=== PATIENT | male | born 1985 | race Caucasian/White ===

== ENCOUNTER 2020-08-09 20:56 | Emergency (ER) | payer MEDICAID ==
[~2020-08-09 20:56] MED LIST: NO HOME MEDS
--- NOTE | 2020-08-09 22:22 | NUR ---
NOTIFIED ABOUT LWOB
== END 2020-08-09 22:22 | disposition left against medical advice (07) ==
LOC: ER 20:56
DX: R51.9 Headache, unspecified (principal); Z53.21 Procedure and treatment not carried out due to patient leaving prior to being seen by health care provider

== ENCOUNTER 2020-09-02 23:10 | Emergency (ER) | payer MEDICAID ==
[~2020-09-02] VITALS: Ht 172.7 cm; Wt 81.8 kg
[2020-09-02] MEDS ORDERED: fentaNYL/PF 50MCG/1 ML 2ML syringe IV ONE (23:30)
[2020-09-02] MEDS ORDERED: TETanus/Pertussis (Acell)/Diphther VAC/PF (Tdap-Adult) 0.5ml syringe IMVAC ONE (23:30)
[2020-09-02] MEDS ORDERED: ondansetron/PF 4mg/2ml inj IV ONE (23:30)
[2020-09-02] MEDS ORDERED: LIDOcaine 1% W/epiNEPHrine 1:200,000 10ml vial IJ ONE (23:30)
[2020-09-02] MEDS ORDERED: bacitracin 15gm ointment TP ONE ×4 (23:30→23:50)
--- NOTE | 2020-09-03 00:01 | NUR ---
tetanus scanned and poatient had agreed to have shot but when RN went to administer vaccine patient said "no, I just had it, I just don't want to deal with needles right now".
[2020-09-03 01:00] VITALS: BP 144/112
--- NOTE | 2020-09-03 01:05 | NUR ---
Helicopter was here to get the patient, he got anxious and eloped.
== END 2020-09-03 01:09 | disposition left against medical advice (07) ==
LOC: ER 23:10
DX: T23.201A Burn of second degree of right hand, unspecified site, initial encounter (principal); T31.0 Burns involving less than 10% of body surface; F32.9 Major depressive disorder, single episode, unspecified; F15.90 Other stimulant use, unspecified, uncomplicated; F11.90 Opioid use, unspecified, uncomplicated; Z72.89 Other problems related to lifestyle; X08.8XXA Exposure to other specified smoke, fire and flames, initial encounter; Y93.89 Activity, other specified; Y92.89 Other specified places as the place of occurrence of the external cause; Y99.8 Other external cause status
CPT/HCPCS: 16025; 64447; 90471; 90715; 99284

== ENCOUNTER 2025-03-21 20:22 | Emergency (ER) | payer MEDICAID ==
[~2025-03-21] VITALS: Ht 170.2 cm; Wt 63.6 kg
[2025-03-21 20:24] VITALS: BP 142/102; PULSE 89; RESP 20; O2SAT 97
--- NOTE | 2025-03-21 21:29 | Physician Documentation ---
History of Present Illness ~ Chief Complaint: Wound Stated Complaint: "FEET/LEFT EAR PAIN" Time Seen by MD: 21:05 OK to notify your PCP?: Yes Primary Medical Doctor: n/a Mode of Arrival: POV Exam Limitations: no limitations HPI Patient presents with multiple medical complaints. He complains of pain and pus coming from his bilateral big toes, head pain, neck pain, left ear pain, withdrawing from Suboxone, methamphetamine use. Last use was yesterday. He states he got out of fpc about three months ago. He was on Suboxone that entire time and he was given 60 tablets however he has run out two weeks ago. Last use of opioids one-week ago. Other history includes history of high blood pressure, not currently on medications. Tetanus within 5 years?: No (patient denies tetanus shot but then states "i just had it"; unknown) Medication Reconciliation Allergies: Coded Allergies: No Known Allergies (Unverified , 08/21/11) Scheduled Ciprofloxacin Hcl/Hc Otic Susp* (Cipro Hc Otic Susp*), 3 DROP LEFT EAR Q12H Sulfamethoxazole/Trimethoprim (Bactrim Ds Tablet), 1 TAB PO Q12H Miscellaneous Medications Home Med List (No Home Medications), (Reported) Past Medical History Past Medical History: Hypertension, Depression Past Surgical History: no surgical history Alcohol Use: Occasionally Drug Use: methamphetamine, heroin Lives In: Homeless Occupation: unemployed Review of Systems ROS Review of systems negative except specifically documented in HPI. Physical Exam Vital Signs: RN Vital Signs have been reviewed: Yes, Temperature: 97.5, Source: Temporal, Heart Rate: 89, Respiratory Rate: 20, BP: 142/102, Pulse Oximetry: 97, Weight: 63.630 Oxygen Flow Rate: 0 Pulse Oximetry Reflects: adequate oxygenation Physical Exam General: Awake, alert. No obvious distress. Neck: There is pain with palpation over the bilateral neck/trapezius muscles. Range of motion is limited in all directions. No cervical lymphadenopathy. Ears: There is pain over the left ear to the pinna on exam. No bulging of the tympanic membrane. Normal light reflex. Right ear without pain and normal light reflex. No bulging of the tympanic membrane. Head: Normocephalic. Respiratory: Lungs are clear to auscultation bilaterally. No respiratory distress. Chest: Normal shape and size. No accessory muscle use. Cardiovascular: Regular rate and rhythm. S1-S2. No murmur, gallop, rub. Gastrointestinal: Abdomen is soft. Nontender to palpation. Bowel sounds present. Extremities: Toenails are thickened with a yellow discoloration. There is pus coming from the toenails on the 1st toe bilaterally. Neurologic: Alert and oriented x4. Nonfocal Psychiatric: He is fidgeting during exam.. Skin: Normal color. Warm and dry. Progress Results/Orders Results/Orders Completed Orders - HEIKE CANCINO NP Sulfamethox/Trimetho. Ds Tab (Septra Ds (03/21/25 21:40) Ibuprofen Tablet (Motrin Tablet) (03/21/25 21:40) Buprenorphine/Naloxone Sl Film (Suboxone (03/21/25 21:37) Medications Received in ER Medications (Trade) Dose Ordered Sig/Alejandro Route PRN Reason Start Time Stop Time Status Last Admin Dose Admin (Septra DS tab) 1 tab ONCE ONCE PO 03/21/25 21:40 03/21/25 21:49 DC 03/21/25 21:55 1 TAB (Motrin tablet) 400 mg ONCE ONCE PO 03/21/25 21:40 03/21/25 21:49 DC 03/21/25 21:55 400 MG (Suboxone 8MG-2MG SL film) 1 film ONCE STAT SL 03/21/25 21:37 03/21/25 21:49 DC 03/21/25 21:55 1 FILM Vital Signs 03/21/25 03/21/25 20:24 22:24 Temp 97.5 97.5 Pulse 89 Resp 20 B/P (MAP) 142/102 Pulse Ox 97 O2 Flow Rate 0 Medical Decision Making Findings Patient presents with multiple medical complaints. He complains of ear pain. His exam revealed intact tympanic membrane on the left. He has pain with palpation. No erythema of the external auditory canal. Given his pain he will be treated with ear drops. No current evidence of otitis media or tympanic membrane rupture. He complains of pus coming from his toenails bilaterally. He states that his feet have been causing him pain. He has no fever/chills or signs of systemic infection currently. Given the pain/prulent drainage from feet will be treated with antibiotics. encouraged soaking feet in warm water, changing socks and otherwise keeping feet dry. Furthermore, he complains of running out of Suboxone. Last used opiates one week ago. He is requesting a dose of Suboxone while he is here. Cows score seven which was reviewed with him. He was highly encouraged to follow up and obtain a primary care provider as well as treatment for opioid use disorder. Resources were provided. Differential Dx:Considerations: Include: Abscess, Cellulitis Departure Time of Disposition: 22:14 Disposition: 01 HOME / SELF CARE / HOMELESS Impression: Primary Impression: Otitis externa Qualified Codes: H60.392 - Other infective otitis externa, left ear Additional Impressions: Paronychia Substance withdrawal Qualified Codes: F19.930 - Other psychoactive substance use, unspecified with withdrawal, uncomplicated Condition: Stable Additional Instructions: Recommend that you get a primary care provider. Also, consider attempting to get into a suboxone program. Take antibiotics to completion. Recommend that you return if symptoms do not improve within the next 72 hours. Keep feet dry. It be helpful to change her socks frequently. Also warm salt water rinses would be helpful for the feet. Return for new or worsening symptoms. Referrals: NO PRIMARY CARE PROVIDER (PCP) Prescriptions Ciprofloxacin Hcl/Hc Otic Susp* (Cipro Hc Otic Susp*) 10 Ml Bottle 3 DROP LEFT EAR Q12H for 7 Days, #10 ML Prov: HEIKE CANCINO NP 03/21/25 Sulfamethoxazole/Trimethoprim (Bactrim Ds Tablet) 800 Mg-160 Mg Tablet 1 TAB PO Q12H for 7 Days, #14 TAB Prov: HEIKE CANCINO NP 03/21/25 Education Educated: Patient Educated regarding: diagnosis, treatment, need for follow up Signature Scribe Signature: No scribe Attestation: The note accurately reflects work and decisions made by me.Heike Cancino - NGOC 03/22/25 00:14 This note was created with the assistance of voice recognition software whereby errors in grammar, syntax, and/or spelling may have occurred despite active proofreading efforts by the author. Please do not hesitate to contact the provider for clarification or for questions regarding the content of this document. HEIKE CANCINO NP Mar 21, 2025 21:29
[2025-03-21] MEDS: sulfamethoxazole/trimethoprim DS (800/160mg) tablet PO ONE (21:55)
[2025-03-21] MEDS: buprenorphine/naloxone 8MG-2MG SUBlingual film SL STA (21:55)
[2025-03-21] MEDS: ibuprofen tablet 400 MG TABLET PO ONE (21:55)
[2025-03-21] MEDS ORDERED: CIPR10DR LEFT EAR (22:12)
[2025-03-21] MEDS ORDERED: SULF1TAB49 PO (22:12)
[2025-03-21 22:24] VITALS: TEMP 97.5
== END 2025-03-21 22:27 | disposition home or self-care (01) ==
LOC: ER 20:23
DX: H60.92 Unspecified otitis externa, left ear (principal); L03.032 Cellulitis of left toe; F19.930 Other psychoactive substance use, unspecified with withdrawal, uncomplicated; I10 Essential (primary) hypertension; F15.90 Other stimulant use, unspecified, uncomplicated; F32.A Depression, unspecified; F11.90 Opioid use, unspecified, uncomplicated
CPT/HCPCS: 99284

== ENCOUNTER 2025-03-22 02:01 | Emergency (ER) | payer MEDICAID ==
[~2025-03-22] VITALS: Ht 170.2 cm; Wt 63.6 kg
[~2025-03-22 02:01] MED LIST changes: +CIPR10DR LEFT EAR; +SULF1TAB49 PO
[2025-03-22 02:43] VITALS: BP 159/110; PULSE 90; RESP 20; TEMP 97.9; O2SAT 99
--- NOTE | 2025-03-22 03:30 | Physician Documentation ---
History of Present Illness ~ Chief Complaint: Ear Pain Stated Complaint: EAR BLEEDING Time Seen by MD: 03:29 Primary Medical Doctor: n/a HPI 39-year-old male, history of methamphetamine use, who presents with bleeding from his left ear. The patient is seen earlier here in the emergency department, was treated with antibiotics and ear drops. He reports bleeding, but denies any other acute concerns. He told the triage nurse that he thought he had a bug in his ear. Medication Reconciliation Allergies: Coded Allergies: No Known Allergies (Unverified , 08/21/11) Scheduled Ciprofloxacin Hcl/Hc Otic Susp* (Cipro Hc Otic Susp*), 3 DROP LEFT EAR Q12H Sulfamethoxazole/Trimethoprim (Bactrim Ds Tablet), 1 TAB PO Q12H Miscellaneous Medications Home Med List (No Home Medications), (Reported) Past Medical History Past Medical History: Hypertension, Depression Past Surgical History: no surgical history Alcohol Use: Occasionally Drug Use: methamphetamine, heroin Lives In: Homeless Occupation: unemployed Review of Systems ENT: Reports: ear bleeding Physical Exam Vital Signs: Temperature: 97.9, Source: Temporal, Heart Rate: 90, Respiratory Rate: 20, BP: 159/110, Pulse Oximetry: 99, Weight: 63.630 Oxygen Flow Rate: 0 Physical Exam General: This is a disheveled young man, appears likely intoxicated HEENT: He has a scab over the left external ear, with a small amount of oozing blood. No evidence of otitis media or foreign body in the left ear. oropharynx is moist Heart: Mild tachycardic, appears regular Psychiatric: The patient has psychomotor agitation, appears likely intoxicated with a stimulant Progress Results/Orders Results/Orders Vital Signs 03/22/25 02:43 Temp 97.9 Pulse 90 Resp 20 B/P (MAP) 159/110 Pulse Ox 99 O2 Flow Rate 0 Medical Decision Making Additional Comment The patient presents with bleeding from his ear. Per his history and exam, it appears most consistent with methamphetamine induced skin picking with a small abrasion. No other dangerous findings. He will be discharged with symptomatic treatment and the previous antibiotics from his visit earlier this morning. Departure Disposition: 01 HOME / SELF CARE / HOMELESS Impression: Primary Impression: Ear abrasion Condition: Stable Additional Instructions: Try to stop scratching at your ear, this will make it bleed more. Referrals: NO PRIMARY CARE PROVIDER (PCP) Education Educated: Patient Signature Scribe Signature: na Attestation: VI Benitez MD Mar 22, 2025 03:30
== END 2025-03-22 04:03 | disposition home or self-care (01) ==
LOC: ER 02:02
DX: S00.412A Abrasion of left ear, initial encounter (principal); I10 Essential (primary) hypertension; F32.A Depression, unspecified; F15.90 Other stimulant use, unspecified, uncomplicated; F11.90 Opioid use, unspecified, uncomplicated; Z79.899 Other long term (current) drug therapy; Z56.0 Unemployment, unspecified; Z59.00 Homelessness unspecified; X58.XXXA Exposure to other specified factors, initial encounter; Y93.89 Activity, other specified; Y92.89 Other specified places as the place of occurrence of the external cause; Y99.8 Other external cause status
CPT/HCPCS: 99282

== ENCOUNTER 2025-05-22 10:22 | Emergency (ER) | payer MEDICAID ==
[~2025-05-22] VITALS: Ht 170.2 cm; Wt 66.6 kg
[~2025-05-22 10:22] MED LIST changes: -CIPR10DR LEFT EAR; -SULF1TAB49 PO
--- NOTE | 2025-05-22 11:41 | RADIOLOGY REPORT ---
EXAM: DI KNEE, COMP 4 VW MIN HISTORY: PAIN left TECHNIQUE: DI KNEE, COMP 4 VW MIN COMPARISON: None FINDINGS: Bones: No acute fracture or dislocation is seen. Joint spaces are maintained. No significant bony proliferative change is noted. No significant suprapatellar joint effusion. Soft tissues: Unremarkable. IMPRESSION: No acute osseous abnormality.
--- NOTE | 2025-05-22 11:44 | RADIOLOGY REPORT ---
EXAM: DI HAND, COMPLETE (3VW MIN) CLINICAL HISTORY: PAIN AND SWELLING,left COMPARISON: None TECHNIQUE: DI HAND, COMPLETE (3VW MIN) Findings/Impression: There is no evidence of an acute fracture, dislocation, blastic, or lytic lesions. Chronic deformity of the first distal phalanx. No radiopaque foreign bodies. No joint effusion or superficial soft tissue abnormalities.
--- NOTE | 2025-05-22 11:46 | RADIOLOGY REPORT ---
DI CHEST TWO VIEWS CLINICAL HISTORY: CHEST WALL PAIN COMPARISON: None TECHNIQUE: Frontal and lateral view of the chest was obtained FINDINGS: Lines and Tubes: None Lungs: No focal consolidation. Pleura: No effusion. No pneumothorax. Cardiomediastinal contours: Unremarkable Bones: No acute osseous abnormality. IMPRESSION: 1. No acute cardiopulmonary disease.
[2025-05-22] MEDS ORDERED: IBUP-864 PO (13:14)
[2025-05-22] MEDS ORDERED: LIDO-52 TOP (13:14)
--- NOTE | 2025-05-22 13:14 | Physician Documentation ---
History of Present Illness ~ General Chief Complaint: Pain Stated Complaint: RIB PAIN Time Seen by MD: 13:07 Primary Medical Doctor: n/a Source: patient Mode of Arrival: Ambulatory Exam Limitations: no limitations History of Present Illness Initial Comments 39-year-old male history of skateboard accident hitting left ribs on cement as well as palm of hand and lower extremity. Patient states there is pain with breathing. No loss of consciousness Medication Reconciliation Allergies: Coded Allergies: No Known Allergies (Unverified , 05/22/25) Scheduled Ibuprofen (Ibu), 1 TAB PO Q8H Lidocaine (Lidoderm), 1 PATCH TOP DAILY Miscellaneous Medications Home Med List (No Home Medications), (Reported) Past Medical History Past Medical History: Hypertension, Depression Past Surgical History: no surgical history Alcohol Use: Occasionally Drug Use: methamphetamine, heroin Lives In: Homeless Occupation: unemployed Review of Systems All Other Systems at this time: Reviewed and Negative Musculoskeletal: Reports: see HPI Physical Exam Physical Exam Vital Signs: RN Vital Signs have been reviewed: Yes, Temperature: 97.7, Source: Temporal, Heart Rate: 114, Respiratory Rate: 16, BP: 144/96, Pulse Oximetry: 99, Weight: 66.600 Oxygen Flow Rate: 0 Physical Exam General: Alert, no apparent distress. HEENT: moist mucous membranes. Neck: Full range of motion. Respiratory: No respiratory distress speaking in full sentences Chest: No accessory muscle use. No obvious deformity equal/symmetric expansion tender to palpate Cardiovascular: Appears well perfused Neurologic: Oriented x4. Psychiatric: Normal mood and affect. Skin: Normal color, warm and dry. No edema, no ecchymosis. Progress Results/Orders Results/Orders Completed Orders - ELISABETH MASTERS NP Ibuprofen Tablet (Motrin Tablet) (05/22/25 13:15) Lidocaine 5% Patch (Lidoderm 5% Patch) (05/22/25 13:15) Medications Received in ER Medications (Trade) Dose Ordered Sig/Alejandro Route PRN Reason Start Time Stop Time Status Last Admin Dose Admin (Motrin tablet) 800 mg ONCE ONCE PO 05/22/25 13:15 05/22/25 13:17 DC 05/22/25 13:42 800 MG (Lidoderm 5% Patch) 1 patch ONCE STAT TP 05/22/25 13:15 05/22/25 13:17 DC 05/22/25 13:42 1 PATCH Vital Signs 05/22/25 05/22/25 05/22/25 05/22/25 10:33 12:30 12:33 13:45 Temp 97.7 97.7 Pulse 114 87 87 Resp 16 16 16 B/P (MAP) 144/96 126/73 (90) 126/73 Pulse Ox 99 99 99 O2 Flow Rate 0 0 EKG/XRAY/CT/US/VASC/MRI Chest X-Ray : Additional Comments DI CHEST TWO VIEWS CLINICAL HISTORY: CHEST WALL PAIN COMPARISON: None TECHNIQUE: Frontal and lateral view of the chest was obtained FINDINGS: Lines and Tubes: None Lungs: No focal consolidation. Pleura: No effusion. No pneumothorax. Cardiomediastinal contours: Unremarkable Bones: No acute osseous abnormality. IMPRESSION: 1. No acute cardiopulmonary disease. Medical Decision Making Additional information obtaine: N/A Findings X-rays to evaluate for any osseous abnormality as a differential. All x-rays negative for fracture. Likely rib contusion. Discussed ibuprofen and lidocaine patches Differential Diagnosis Rib bruises versus fractures Departure Time of Disposition: 13:12 Disposition: 01 HOME / SELF CARE / HOMELESS Impression: Primary Impression: Contusion of rib Condition: Stable Discharge Instructions: Rib Contusion Additional Instructions: Use Tylenol, ibuprofen for [id number] pain lidocaine patches as needed. Follow up with primary care in a week Referrals: NO PRIMARY CARE PROVIDER (PCP) Prescriptions Lidocaine (Lidoderm) 5 % Adh..patch 1 PATCH TOP DAILY for 30 Days, #30 PATCH 0 Refills may wear up to 12 hours Prov: ELISABETH MASTERS NP 05/22/25 Ibuprofen (Ibu) 800 Mg Tablet 1 TAB PO Q8H for 7 Days, #21 TAB 0 Refills Prov: ELISABETH MASTERS NP 05/22/25 Education Educated: Patient Educated regarding: diagnosis, treatment, need for follow up Signature Scribe Signature: No scribe Attestation: The note accurately reflects work and decisions made by me.Elisabeth IBARRA 05/22/25 13:14 ELISABETH MASTERS NP May 22, 2025 13:14
[2025-05-22] MEDS: ibuprofen tablet 400 MG TABLET PO ONE (13:42)
[2025-05-22 13:45] VITALS: BP 126/73; PULSE 87; RESP 16; TEMP 97.7; O2SAT 99
== END 2025-05-22 13:45 | disposition home or self-care (01) ==
LOC: ER 10:23
DX: S20.212A Contusion of left front wall of thorax, initial encounter (principal); I10 Essential (primary) hypertension; F32.A Depression, unspecified; F15.90 Other stimulant use, unspecified, uncomplicated; F11.90 Opioid use, unspecified, uncomplicated; Z56.0 Unemployment, unspecified; Z59.00 Homelessness unspecified; Z72.89 Other problems related to lifestyle; Z79.899 Other long term (current) drug therapy; X58.XXXA Exposure to other specified factors, initial encounter; Y93.89 Activity, other specified; Y92.89 Other specified places as the place of occurrence of the external cause; Y99.8 Other external cause status
CPT/HCPCS: 71046; 73130; 73564; 99284

== ENCOUNTER 2025-06-22 10:36 | Emergency (ER) | payer MEDICAID ==
[~2025-06-22] VITALS: Ht 170.2 cm; Wt 69.3 kg
[~2025-06-22 10:36] MED LIST changes: +IBUP-864 PO; +LIDO-52 TOP
[2025-06-22 10:42] VITALS: BP 153/99; PULSE 85; RESP 18; TEMP 97.2; O2SAT 99
[2025-06-22] MEDS ORDERED: DOXY100C43 PO (11:20)
[2025-06-22] MEDS ORDERED: IBUP-1984 PO (11:20)
--- NOTE | 2025-06-22 11:20 | Physician Documentation ---
History of Present Illness ~ Chief Complaint: Abscess Stated Complaint: HIGH BP Time Seen by MD: 11:03 Primary Medical Doctor: n/a HPI 40-year-old male right-hand dominant presents to the emergency department with a small developing abscess of the left upper extremity in the mid humerus. The developing abscesses approximately a quarter to a 0.5 cm in size with a head on it. No lymphangitis noted. Tetanus Within 5 Years: No (patient denies tetanus shot but then states "i just had it"; unknown) Medication Reconciliation Allergies: Coded Allergies: No Known Allergies (Unverified , 06/22/25) Scheduled Ibuprofen (Ibu), 1 TAB PO Q8H Lidocaine (Lidoderm), 1 PATCH TOP DAILY Miscellaneous Medications Home Med List (No Home Medications), (Reported) Past Medical History Past Medical History: Hypertension, Depression Past Surgical History: no surgical history Alcohol Use: Occasionally Drug Use: methamphetamine, heroin Lives In: Homeless Occupation: unemployed Review of Systems All Other Systems at this time: Reviewed and Negative Integumentary: Reports: see HPI Physical Exam Vital Signs: RN Vital Signs have been reviewed: Yes, Temperature: 97.2, Source: Temporal, Heart Rate: 85, Respiratory Rate: 18, BP: 153/99, Pulse Oximetry: 99, Weight: 69.300 Oxygen Flow Rate: 0 General Appearance: alert, WD/WN, mild distress EENT: normal ENT inspection Neck: normal inspection Cardiovascular: regular rate, rhythm Respiratory: lungs clear Chest: no accessory muscle use Gastrointestinal: non-tender Skin Less than 0.5 cm mildly indurated lesion with the head to mid left upper extremity without lymphangitis has been Neurologic: oriented x4 Psychiatric: normal mood/affect Progress Results/Orders Results/Orders Vital Signs 06/22/25 10:42 Temp 97.2 Pulse 85 Resp 18 B/P (MAP) 153/99 Pulse Ox 99 O2 Flow Rate 0 Medical Decision Making Additional information obtaine: N/A Findings 40-year-old male otherwise healthy with developing abscess of the left mid upper extremity. Recommend warm moist soaks and to begin antibiotics as directed. No indication for incision and drainage. Differential Dx:Considerations: Include: Abscess, Bacteremia, Cellulitis, Impetigo Departure Disposition: 01 HOME / SELF CARE / HOMELESS Impression: Primary Impression: Abscess Condition: Improved Discharge Instructions: Abscess, Care After Additional Instructions: Please apply warm moist soaks of the left upper arm. Begin medications as directed and return to the emergency department if symptoms worsen. Referrals: NO PRIMARY CARE PROVIDER (PCP) Prescriptions Ibuprofen* (Motrin*) 400 Mg Tablet 1 TAB PO Q8H for pain or fever for 10 Days, #30 TAB Prov: VI CRUZ 06/22/25 Doxycycline Monohydrate (Doxycycline Monohydrate) 100 Mg Capsule 100 MG PO BID, #20 CAP may sub doxycycline hyclate or azithromycin z-pack as prescribed Prov: VI CRUZ 06/22/25 Education Educated: Patient Educated regarding: diagnosis, treatment, prognosis Signature Scribe Signature: . Attestation: . VI CRUZ Jun 22, 2025 11:20
== END 2025-06-22 11:26 | disposition home or self-care (01) ==
LOC: ER 10:36
DX: L02.414 Cutaneous abscess of left upper limb (principal); I10 Essential (primary) hypertension; F15.90 Other stimulant use, unspecified, uncomplicated; F11.90 Opioid use, unspecified, uncomplicated; F32.A Depression, unspecified; Z79.899 Other long term (current) drug therapy; Z56.0 Unemployment, unspecified; Z59.00 Homelessness unspecified; Z72.89 Other problems related to lifestyle
CPT/HCPCS: 99283